=== PATIENT | female | born 1995 | race Caucasian/White ===

== ENCOUNTER 2019-10-25 17:27 | Emergency (ER) | payer OTHER, SELFPAY ==
--- NOTE | 2019-10-25 17:37 | ED.URI ---
HPI - URI/Sore Throat General Chief Complaint: Upper Respiratory Infection Stated Complaint: Cough/Sore Throat/Congestion Time Seen by Provider: 10/25/19 17:38 Source: patient and RN notes reviewed History of Present Illness HPI Narrative: Patient is a 24-year-old female presents the urgent care with complaints of cough, sore throat, congestion. Patient states that started approximately 2 to 3 days ago and she has been using DayQuil, Tylenol, ibuprofen. Patient also reports of chills and sweats last night. No other acute complaints. No acute distress noted. Patient read the plan of care. Related Data Home Medications Medication Instructions Recorded Confirmed citalopram 40 mg PO DAILY 08/14/19 08/14/19 levonorgestrel [Mirena] 1 device INTRAUTERINE ONCE 08/14/19 08/14/19 Allergies Allergy/AdvReac Type Severity Reaction Status Date / Time No Known Allergies Allergy Verified 10/25/19 18:01 Review of Systems Review of Systems: Narrative: CONSTITUTIONAL: Denies fever, chills, or sweats. EYES: Denies visual changes, redness, or discharge. ENT: Reports of sore throat, sinus congestion CARDIOVASCULAR: Denies chest pain, palpitations, or edema. RESPIRATORY: Reports of cough without dyspnea GASTROINTESTINAL: Denies abdominal pain, nausea, vomiting, or diarrhea. GENITOURINARY: Denies dysuria or hematuria. SKIN: Denies rash or itching. MUSCULOSKELETAL: Denies back pain, joint pain, or myalgia. NEUROLOGIC: Denies headache, numbness, or weakness. All other systems reviewed are negative, except as documented in HPI. PMFSH Social History Social History (Updated 08/14/19 @ 18:48 by ALLAN Palma) Tobacco type: e-cigarettes Comments At the time of my signature, I reviewed and agree with the nursing past medical, surgical, social, and family history. There is no relevant family history pertinent to the patient complaint. Exam Narrative: Exam Narrative: GENERAL: This is a well-nourished, well-developed patient, in no apparent distress. HEAD: normocephalic, atraumatic. EYES: PERRL. Sclera clear/white. Vision is grossly intact. EARS: External ears normal, auditory canals clear and without drainage, TMs normal without perforation. Hearing grossly intact. NOSE: External nose normal with no obvious nasal discharge, nares without redness, no rhinorrhea. THROAT: Mucous membranes moist, posterior pharynx clear. Moderate postnasal drainage NECK: Neck supple, non-tender without lymphadenopathy, masses or thyromegaly. CARDIOVASCULAR: Regular rate and rhythm without murmurs, gallops, or rubs. RESPIRATORY: Clear to auscultation. Breath sounds equal bilaterally. No wheezes, rales, or rhonchi. SKIN: warm, intact with no suspicious lesions or rash, good texture and turgor. NEURO: awake, alert, and oriented to person, place and time. There were no obvious focal neurologic abnormalities. EXTREMITIES: No clubbing, cyanosis, or edema. Course Vital Signs Vital signs: Vital Signs Temperature 99.3 F 10/25/19 17:44 Pulse Rate 67 10/25/19 17:44 Respiratory Rate 16 10/25/19 17:44 Blood Pressure 115/94 H 10/25/19 17:44 Pulse Oximetry 100 10/25/19 17:44 Temperature 99.3 F 10/25/19 17:44 Pulse Rate 67 10/25/19 17:44 Respiratory Rate 16 10/25/19 17:44 Blood Pressure 115/94 H 10/25/19 17:44 Pulse Oximetry 100 10/25/19 17:44 Reviewed-patient is informed that they may have pre-hypertension or hypertension based on a blood pressure reading in the department. I recommend the patient call the primary care provider listed on their discharge instructions or a physician of their choice this week to arrange follow-up for further evaluation of possible pre-hypertension or hypertension. MDM - URI/Sore Throat MDM Narrative Medical decision making narrative: Reviewed lab results with the patient. She is aware that strep swab was negative. Educated patient on culture we will call within 72 hours if culture is positive and
[2019-10-25 17:44] VITALS: BP 115/94; PULSE 67; RESP 16; TEMP 37.4; O2SAT 100
== END 2019-10-25 18:20 | disposition home or self-care (01) ==
PROVIDERS: Emergency Provider Nurse Practitioner Family
DX: J06.9 Acute upper respiratory infection, unspecified (principal); J02.9 Acute pharyngitis, unspecified; F32.9 Major depressive disorder, single episode, unspecified
CPT/HCPCS: 87081; 87880; 99213; G0463